=== PATIENT | female | born 1975 | race Caucasian/White ===

== ENCOUNTER → 2018-02-27 09:00 | Outpatient (CLI) | payer OTHER, SELFPAY | DX: Z23 Encounter for immunization (principal) | CPT/HCPCS: 90471; 90686 ==

== ENCOUNTER 2018-07-07 18:07 | Emergency (ER) | payer OTHER, SELFPAY ==
[2018-07-07 18:36] VITALS: BP 126/72; PULSE 118; TEMP 37.1; O2SAT 98
--- NOTE | 2018-07-07 22:14 | ED_ITS ---
HPI - Burn/Smoke Inhalation General Chief complaint: Burn/Smoke Inhalation Stated complaint: BURNED BY STEAMER HOT WATER LEFT FOOT Time Seen by Provider: 07/07/18 21:43 Source: patient Mode of arrival: ambulatory Limitations: no limitations History of Present Illness HPI Narrative: Patient is a 43-year-old female who presents with left foot burn. She was at work she opened a steamer door and hot water tripped on her sock and shoe. It is socket she were immediately removed she put under cold water and came to ED for further evaluation. Tetanus up-to-date MD Complaint: burn Onset (ago): hour(s) Type of Exposure: steam Smoke Inhalation: none Place: unknown (Work) Related Data Home Medications Medication Instructions Recorded Confirmed MULTIVITAMIN 1 cap PO QDAY #0 07/04/12 Review of Systems Review of Systems GENERAL: Denies chills,fever HEENT: Denies throat pain RESPIRATORY: Denies dyspnea, cough, wheezing CARDIOVASCULAR: Denies chest pain, palpitations GASTROINTESTINAL: Denies nausea, vomiting MUSCULOSKELETAL: Denies extremity pain, injury SKIN: See HPI NEUROLOGIC: Denies weakness, dizziness, headache, numbness 8 point review of systems is negative except for those stated above and HPI [facility] Medical History Patient denies significant medical history (Acute) Social History Smoking Status: Never smoker Social History Smoking Status: Never smoker Exam Initial Vital Signs Initial Vital Signs: Vital Signs Temperature 98.8 F 07/07/18 18:36 Pulse Rate 118 H 07/07/18 18:36 Blood Pressure 126/72 07/07/18 18:36 Pulse Oximetry 98 07/07/18 18:36 GENERAL: Well-appearing, well-nourished and in no acute distress. CARDIOVASCULAR: peripheral pulses in tact, cap refill <2 sec RESPIRATORY: No respiratory distress, speaks in full sentences without difficulty EXTREMITIES: Normal range of motion, no clubbing or edema. Neurovascularly intact NEUROLOGICAL: Cranial nerves II through XII grossly intact. Normal gait and speech. SKIN: Left foot shows minimal erythema no blisters Course Vital Signs - 8 hr 07/07/18 22:45 Respiratory Rate 16 Discharge Plan Departure Patient Disposition: Home Clinical Impression: Burn of first degree of left foot, initial encounter Qualifiers: Encounter type: initial encounter Qualified Code(s): T25.122A - Burn of first degree of left foot, initial encounter Discharge Date/Time: 07/07/18 22:46 Interventions: ED Discharge Assessment Last Done: 07/07/18 22:45 Instructions: How to Take Care of a Burn Activity Restrictions/Additional Instructions: *You have been diagnosed with 1st degree burn left foot *What to do: May apply Neosporin or triple antibiotic ointment to areas of redness on foot *Continue to take medications as directed Ibuprofen 600 mg every 6-8 hours if needed for pain *Follow up with your primary care provider in 2-3 days, and/or L&I *Return to ER if you should have increasing pain, or blister formation or any new, worsening or concerning symptoms Prescriptions: No Action MULTIVITAMIN 1 cap PO QDAY Qty: 0 RF: 0
[2018-07-07 22:45] VITALS: RESP 16
== END 2018-07-07 22:46 | disposition home or self-care (01) ==
PROVIDERS: Emergency Provider Emergency Medicine
DX: T25.122A Burn of first degree of left foot, initial encounter (principal); X11.8XXA Contact with other hot tap-water, initial encounter; Y99.0 Civilian activity done for income or pay
CPT/HCPCS: 99282

== ENCOUNTER → 2019-02-08 15:00 | Outpatient (CLI) | payer OTHER, SELFPAY | DX: Z23 Encounter for immunization (principal) | CPT/HCPCS: 90471; 90686 ==

== ENCOUNTER → 2020-01-24 | Outpatient (CLI) | payer OTHER, SELFPAY | PROVIDERS: Referring Provider Internal Medicine; Visit Provider Internal Medicine | DX: Z23 Encounter for immunization (principal) | CPT/HCPCS: 90471; 90686 ==

== ENCOUNTER → 2020-05-09 12:03 | Outpatient (CLI) | payer OTHER, SELFPAY ==
[2020-05-09] MEDS: COVID-19 VACC(MODERNA-1)/PF 100 MCG/0.5 ML VIAL IM (12:09)
== END ==
PROVIDERS: Visit Provider Internal Medicine
DX: Z23 Encounter for immunization (principal)
CPT/HCPCS: 0011A; 91301

== ENCOUNTER → 2020-06-06 12:00 | Outpatient (CLI) | payer OTHER, SELFPAY ==
[2020-06-06] MEDS: COVID-19 VACC #2, MRNA(MOD) 100 MCG/0.5 ML VIAL IM (12:14)
== END ==
PROVIDERS: Visit Provider Internal Medicine
DX: Z23 Encounter for immunization (principal)
CPT/HCPCS: 0012A; 91301

== ENCOUNTER → 2021-01-29 10:09 | Outpatient (CLI) | payer OTHER, SELFPAY | PROVIDERS: Referring Provider Internal Medicine; Visit Provider Internal Medicine | DX: Z23 Encounter for immunization (principal) | CPT/HCPCS: 90471; 90686 ==